=== PATIENT | female | born 1960 | race Caucasian/White ===

== ENCOUNTER 2017-09-25 06:38 | Emergency (ER) | payer OTHER ==
[~2017-09-25] VITALS: Ht 157.5 cm; Wt 72.6 kg
[~2017-09-25 06:38] MED LIST: ALBU8.5H8 INH; CARV3.1246 PO; DOCU-144 PO; FLUT1DIS5 INH; HYDR12.585 PO; IBUP-1969 PO; LISI40TA4 PO; LORA-258 PO; PERD5 PO; SERT50TA12 PO
[2017-09-25 06:54] VITALS: BP_SYST 155
--- NOTE | 2017-09-25 06:54 | NUR ---
Pt c/o H/A with SOB and chest tightness since this AM while getting ready for work. Pt states that she gets these symptoms when her B/P is high. Denies N/V/D.
--- NOTE | 2017-09-25 07:00 | NUR ---
Dr. Jarquin at bedside.
[2017-09-25] MEDS ORDERED: NACL 0.9% 1,000 ML IV ONE (07:04)
[2017-09-25] MEDS ORDERED: ASPIRIN 81 MG TAB.CHEW PO ONE (07:15)
[2017-09-25] MEDS ORDERED: IPRATROPIUM/ALBUTEROL SULFATE 3 ML AMPUL.NEB INH ONE (07:15)
[2017-09-25] MEDS ORDERED: ONDANSETRON HCL 4 MG/2 ML VIAL IVP ONE (07:15)
--- NOTE | 2017-09-25 07:20 | NUR ---
# 20 gauge angiocath placed to LAC. Use of asceptic technique. Opsite placed over site. Blood return noted. Blood for lab drawn from site. Flushed with 10 cc of normal saline. No evidence of infiltration noted. Patient tolerated well.
--- NOTE | 2017-09-25 07:30 | NUR ---
X-ray at bedside.
[2017-09-25 07:33] LABS: BASOPHILS % (AUTO) 0.5 % (0.0-2.0); EOSINOPHILS # (AUTO) 0.5 K/uL (0.0-0.4); EOSINOPHILS % (AUTO) 8.6 % (0.0-4.0); HEMATOCRIT 38.3 % (36-48); HEMOGLOBIN 12.8 g/dL (12.0-16.0); LYMPHOCYTES # (AUTO) 1.3 K/uL (1.0-5.5); LYMPHOCYTES % (AUTO) 24.3 % (20.5-51.5); MEAN CORPUSCULAR HEMOGLOBIN 29 pg (27-31); MEAN CORPUSCULAR HGB CONC 33 % (32-36); MEAN CORPUSCULAR VOLUME 87 fL (79.0-98.0); MONOCYTES # (AUTO) 0.5 K/uL (0.0-1.0); MONOCYTES % (AUTO) 9.7 % (1.7-9.3); NEUTROPHILS # (AUTO) 2.9 K/uL (1.8-7.7); NEUTROPHILS % (AUTO) 56.9 % (40.0-70.0); PLATELET COUNT (AUTO) 306 K/uL (130-430); RED BLOOD CELL COUNT(AUTO) 4.41 MIL/uL (4.2-6.2); RED CELL DISTRIBUTION WIDTH 11.8 % (9.0-15.0); WHITE BLOOD COUNT (AUTO) 5.2 K/uL (4.8-10.8)
--- NOTE | 2017-09-25 07:35 | NUR ---
Dr. Solo at bedside to assess pt.
[2017-09-25 07:42] LABS: ANION GAP 6 (5-15); CHLORIDE 103 mmol/L (98-107); CREATININE 0.81 mg/dL (0.55-1.30); POTASSIUM 3.7 mmol/L (3.5-5.1); SODIUM SERUM 136 mmol/L (136-145); UREA NITROGEN, BLOOD 26 mg/dL (8-21)
[2017-09-25 07:50] LABS: ALANINE AMINOTRANSFERASE 42 U/L (12-78); ALBUMIN 3.8 g/dL (3.4-4.8); ASPARTATE AMINOTRANSFERASE 29 U/L (10-37); CALCIUM 9.1 mg/dL (8.4-11.0); GLUCOSE 113 mg/dL (70-99); INR 0.9 (0.8-1.2); PROTHROMBIN TIME 9.5 SECS (9.5-12.5); TOTAL BILIRUBIN 0.2 mg/dL (0.0-1.0)
[2017-09-25 07:51] LABS: GFR AFRICAN AMERICAN 94 mL/min (>90)
[2017-09-25 08:10] VITALS: BP_SYST 128
--- NOTE | 2017-09-25 08:10 | NUR ---
Patient given written and verbal discharge instructions and verbalizes understanding. ER MD discussed with patient the results and treatment provided. Patient in stable condition. ID arm band removed. IV catheter removed intact and dressing applied, no active bleeding. No Rx given. Patient educated on pain management and to follow up with PMD. Pain Scale 2/10. Opportunity for questions provided and answered. Medication side effect fact sheet provided.
[2017-09-25] MEDS ORDERED: LORazepam 2 MG/ML VIAL (FOR ER USE) IVP ONE (08:15)
[2017-09-25] MEDS ORDERED: KETOROLAC TROMETHAMINE 15 MG VIAL IVP ONE (08:30)
== END 2017-09-25 08:10 | disposition home or self-care (01) ==
LOC: SED 06:38
DX: J45.909 Unspecified asthma, uncomplicated (principal); I10 Essential (primary) hypertension; R51 Headache; Z79.01 Long term (current) use of anticoagulants
CPT/HCPCS: 36415; 71045; 80053; 84484; 85025; 85379; 85610; 85730; 93005; 94640; 96361; 96374; 96375; 99285; J1885; J2405; J7030; J7620

== ENCOUNTER 2019-01-17 05:54 | Emergency (ER) | payer OTHER ==
[~2019-01-17] VITALS: Ht 157.5 cm; Wt 72.6 kg
[2019-01-17 06:06] VITALS: BP_SYST 159
--- NOTE | 2019-01-17 06:10 | NUR ---
Pt c/o worsening of asthma symptoms since Sunday. Pt states that she has had an increase in frequency of coughing, sneezing, with sore throat. Pt states that she tried 15 puffs of her Albuterol Inhaler on Sunday and multiple Albuterol treatments with no relief. Pt states "Everytime I cough, I can't catch my breath." Inspiratory wheezing noted. Pt describes sputum as green-yellow.
--- NOTE | 2019-01-17 06:10 | NUR ---
Pt placed to ER waiting room in stable condition.
[2019-01-17] MEDS ORDERED: AMLO5TAB4 PO (06:12)
--- NOTE | 2019-01-17 06:12 | NUR ---
Medication reconciliation completed with information provided by patient. Any prior medication reconciliation on file was reviewed and corrected.
--- NOTE | 2019-01-17 06:20 | NUR ---
Dr. Palafox at bedside.
[2019-01-17] MEDS ORDERED: methylPREDNISolone SOD SUCC/PF 62.5 MG/ML VIAL IVP ONE (06:30)
[2019-01-17] MEDS ORDERED: IPRATROPIUM/ALBUTEROL SULFATE 3 ML AMPUL.NEB (DUONEB) INH ONE (06:30)
--- NOTE | 2019-01-17 06:37 | NUR ---
RT at bedside
--- NOTE | 2019-01-17 06:40 | NUR ---
Note undone in EDM - 01/17/19 at 0646 by LATIA # 20 gauge angiocath placed to LAC. Use of asceptic technique. Opsite placed over site. Blood return noted. Blood for lab drawn from site. Flushed with 10 cc of normal saline. No evidence of infiltration noted. Patient tolerated well.
[2019-01-17 06:51] LABS: BASOPHILS # (AUTO) 0.1 K/uL (0.0-0.2); BASOPHILS % (AUTO) 0.6 % (0.0-2.0); EOSINOPHILS # (AUTO) 0.3 K/uL (0.0-0.4); EOSINOPHILS % (AUTO) 3.2 % (0.0-4.0); HEMOGLOBIN 12.6 g/dL (12.0-16.0); LYMPHOCYTES # (AUTO) 1.5 K/uL (1.0-5.5); LYMPHOCYTES % (AUTO) 17.8 % (20.5-51.5); MEAN CORPUSCULAR HEMOGLOBIN 29 pg (27-31); MEAN CORPUSCULAR HGB CONC 33 % (32-36); MEAN CORPUSCULAR VOLUME 87 fL (79.0-98.0); MONOCYTES # (AUTO) 0.6 K/uL (0.0-1.0); NEUTROPHILS # (AUTO) 6.1 K/uL (1.8-7.7); NEUTROPHILS % (AUTO) 71.4 % (40.0-70.0); PLATELET COUNT (AUTO) 313 K/uL (130-430); RED BLOOD CELL COUNT(AUTO) 4.34 MIL/uL (4.2-6.2); RED CELL DISTRIBUTION WIDTH 13.1 % (9.0-15.0); WHITE BLOOD COUNT (AUTO) 8.5 K/uL (4.8-10.8)
[2019-01-17] MEDS ORDERED: AMOXICILLIN/CLAVULANATE POTASSIUM 875 MG TABLET PO ONE (07:00)
[2019-01-17] MEDS ORDERED: AZITHROMYCIN 250 MG TABLET PO ONE (07:00)
[2019-01-17 07:12] LABS: CALCIUM 9.4 mg/dL (8.4-11.0); CREATININE 0.69 mg/dL (0.55-1.30); POTASSIUM 3.1 mmol/L (3.5-5.1)
[2019-01-17 07:25] LABS: ALBUMIN 3.8 g/dL (3.4-4.8); TOTAL BILIRUBIN 0.4 mg/dL (0.0-1.0)
--- NOTE | 2019-01-17 07:25 | NUR ---
Pt AAO x 4, pt tolerated medication well. Continuing to monitor.
[2019-01-17 08:01] VITALS: BP_SYST 136
--- NOTE | 2019-01-17 08:01 | NUR ---
Patient given written and verbal discharge instructions and verbalizes understanding. ER MD discussed with patient the results and treatment provided. Patient in stable condition. ID arm band removed. IV catheter removed intact and dressing applied, no active bleeding. Rx of prednisone,levaquin given. Patient educated on pain management and to follow up with PMD. Pain Scale 0. Opportunity for questions provided and answered. Medication side effect fact sheet provided.
== END 2019-01-17 08:01 | disposition home or self-care (01) ==
LOC: SED 05:54
DX: J18.1 Lobar pneumonia, unspecified organism (principal); J45.901 Unspecified asthma with (acute) exacerbation; I10 Essential (primary) hypertension; J44.9 Chronic obstructive pulmonary disease, unspecified; E11.9 Type 2 diabetes mellitus without complications; Z79.899 Other long term (current) drug therapy
CPT/HCPCS: 36415; 36600; 71045; 80053; 82803; 85025; 94640; 96374; 99284; J2930; J7620; Q0144

== ENCOUNTER 2019-01-20 03:09 | Observation (INO) | payer OTHER ==
[~2019-01-20] VITALS: Ht 157.5 cm; Wt 69.4 kg
[2019-01-20 03:09] VITALS: BP_SYST 159
[~2019-01-20 03:09] MED LIST changes: +AMLO5TAB4 PO; -CARV3.1246 PO; -DOCU-144 PO; -IBUP-1969 PO; -LORA-258 PO; -PERD5 PO
[2019-01-20] MEDS ORDERED: ONDANSETRON HCL 4 MG/2 ML VIAL IVP ONE (03:45)
[2019-01-20] MEDS ORDERED: MORPHINE 2 MG/ML INJ. SYRINGE IVP ONE (03:45)
[2019-01-20 04:28] LABS: BASOPHILS # (AUTO) 0.1 K/uL (0.0-0.2); BASOPHILS % (AUTO) 0.9 % (0.0-2.0); EOSINOPHILS # (AUTO) 0.1 K/uL (0.0-0.4); EOSINOPHILS % (AUTO) 0.8 % (0.0-4.0); HEMATOCRIT 38.2 % (36-48); HEMOGLOBIN 12.8 g/dL (12.0-16.0); LYMPHOCYTES # (AUTO) 2.6 K/uL (1.0-5.5); LYMPHOCYTES % (AUTO) 30.5 % (20.5-51.5); MEAN CORPUSCULAR HEMOGLOBIN 29 pg (27-31); MEAN CORPUSCULAR HGB CONC 33 % (32-36); MEAN CORPUSCULAR VOLUME 87 fL (79.0-98.0); MONOCYTES # (AUTO) 0.4 K/uL (0.0-1.0); NEUTROPHILS # (AUTO) 5.3 K/uL (1.8-7.7); NEUTROPHILS % (AUTO) 62.8 % (40.0-70.0); PLATELET COUNT (AUTO) 324 K/uL (130-430); RED CELL DISTRIBUTION WIDTH 12.8 % (9.0-15.0); WHITE BLOOD COUNT (AUTO) 8.5 K/uL (4.8-10.8)
[2019-01-20 04:35] LABS: CALCIUM 9.3 mg/dL (8.4-11.0); CREATININE 0.71 mg/dL (0.55-1.30); POTASSIUM 3.2 mmol/L (3.5-5.1)
[2019-01-20 04:40] LABS: PROTHROMBIN TIME 9.8 SECS (9.5-12.5)
[2019-01-20 04:41] LABS: ALBUMIN 3.6 g/dL (3.4-4.8); TOTAL BILIRUBIN 0.3 mg/dL (0.0-1.0)
[2019-01-20] MEDS ORDERED: IOHEXOL 350 mgI/mL, 150 ML INFUS..BTL IV ONE (05:48)
[2019-01-20] MEDS ORDERED: POTASSIUM CHLORIDE 20 MEQ TAB.PRT.SR PO ONE (06:45)
[2019-01-20 09:00] VITALS: BP_SYST 140
[2019-01-20] MEDS ORDERED: FLUTICASONE 500 mCg/SALMETEROL 50 mCg DISKUS W.DEV INH SCH (09:00)
[2019-01-20] MEDS: ALBUTEROL SULFATE 0.083% 2.5 MG/3 ML VIAL.NEB INH SCH ×5 (09:00→23:00)
[2019-01-20] MEDS: amLODIPine BESYLATE 5 MG TABLET PO SCH ×2 (09:00→09:42)
[2019-01-20] MEDS ORDERED: ALBUTEROL SULFATE 0.083% 2.5 MG/3 ML VIAL.NEB INH PRN (09:00)
[2019-01-20] MEDS ORDERED: IPRATROPIUM BROM 0.5 MG/2.5 ML VIAL.NEB (ATROVENT) INH PRN (09:00)
[2019-01-20] MEDS: LISINOPRIL 20 MG TABLET PO SCH ×2 (09:00→09:43)
[2019-01-20] MEDS: SERTRALINE HCL 50 MG TABLET PO SCH ×2 (09:00→09:43)
[2019-01-20] MEDS: HYDROCHLOROTHIAZIDE 12.5 MG CAPSULE (HCTZ) PO SCH (09:41)
[2019-01-20] MEDS: IPRATROPIUM BROM 0.5 MG/2.5 ML VIAL.NEB (ATROVENT) INH SCH ×4 (11:00→23:00)
[2019-01-20 14:59] VITALS: BP_SYST 140
[2019-01-20 18:19] VITALS: BP_SYST 130
[2019-01-20 20:29] VITALS: BP_SYST 134
[2019-01-20] MEDS ORDERED: ACETAMINOPHEN 325 MG TABLET PO PRN (21:00)
[2019-01-20] MEDS ORDERED: MORPHINE 2 MG/ML INJ. SYRINGE IVP SCH (21:00)
[2019-01-21 01:15] VITALS: BP_SYST 126
[2019-01-21] MEDS: IPRATROPIUM BROM 0.5 MG/2.5 ML VIAL.NEB (ATROVENT) INH SCH ×4 (02:43→15:00)
[2019-01-21] MEDS: ALBUTEROL SULFATE 0.083% 2.5 MG/3 ML VIAL.NEB INH SCH ×4 (02:43→15:00)
[2019-01-21] MEDS ORDERED: LEVOFLOXACIN 500 MG/D5W 100 ML IV SCH (05:15)
[2019-01-21 08:35] VITALS: BP_SYST 140
[2019-01-21] MEDS ORDERED: methylPREDNISolone SOD SUCC/PF 62.5 MG/ML VIAL IVP ONE (09:00)
[2019-01-21] MEDS: SERTRALINE HCL 50 MG TABLET PO SCH (09:16)
[2019-01-21] MEDS: amLODIPine BESYLATE 5 MG TABLET PO SCH (09:17)
[2019-01-21] MEDS: LISINOPRIL 20 MG TABLET PO SCH (09:18)
[2019-01-21] MEDS: HYDROCHLOROTHIAZIDE 12.5 MG CAPSULE (HCTZ) PO SCH (09:19)
[2019-01-21] MEDS ORDERED: AMOXICILLIN/CLAVULANATE POTASSIUM 875 MG TABLET PO ONE (10:00)
[2019-01-21] MEDS ORDERED: AMOX-426 PO (11:08)
[2019-01-21] MEDS ORDERED: PRED20TA PO ×3 (11:09→11:12)
[2019-01-21 11:26] VITALS: BP_SYST 130
[2019-01-21] MEDS ORDERED: methylPREDNISolone SOD SUCC/PF 62.5 MG/ML VIAL IVP SCH (14:00)
[2019-01-21 15:03] VITALS: BP_SYST 134
[2019-01-21 15:29] VITALS: BP_SYST 134
== END 2019-01-21 16:08 | disposition home or self-care (01) ==
LOC: SED 03:09 → STU 07:21 → SMU 01-21 08:40
PROVIDERS: ADMIT Internal Medicine Hospice and Palliative Medicine; ATTEND Internal Medicine Hospice and Palliative Medicine
DX: R07.89 Other chest pain (principal); J45.909 Unspecified asthma, uncomplicated; I10 Essential (primary) hypertension; F41.9 Anxiety disorder, unspecified; F32.9 Major depressive disorder, single episode, unspecified; Z87.891 Personal history of nicotine dependence; Z96.652 Presence of left artificial knee joint
CPT/HCPCS: 36415 ×2; 71045; 71275; 80053; 82550; 83880; 84484 ×2; 85025; 85379; 85610; 85730; 93005; 93306; 94640 ×2; 96374; 96375 ×2; 96376 ×2; 99285; G0378 ×2; J1956; J2270; J2405; J2930; J7613 ×2; Q9967

== ENCOUNTER 2019-10-05 05:07 | Emergency (ER) | payer OTHER ==
[~2019-10-05] VITALS: Ht 157.5 cm; Wt 71.7 kg
[2019-10-05 05:07] VITALS: BP_SYST 152
[~2019-10-05 05:07] MED LIST changes: -ALBU8.5H8 INH; +AMOX-426 PO; +PRED20TA PO
[2019-10-05] MEDS ORDERED: ASPIRIN 81 MG TAB.CHEW PO ONE (05:30)
--- NOTE | 2019-10-05 05:32 | NUR ---
Dr. Kim bedside for pt eval
--- NOTE | 2019-10-05 05:37 | NUR ---
Portable X Ray bedside, well tolerated
[2019-10-05] MEDS ORDERED: MORPHINE 4 MG/ML INJ. SYRINGE IVP ONE (05:45)
--- NOTE | 2019-10-05 05:48 | NUR ---
Pt BIB family to ED C/O chest pain radiating to uuper back and rt neck/back of ear since Sunday. No pain meds taken. No other complaints noted VSS no s/s of acute distress Resting on gurZuvvu rails up
[2019-10-05 05:52] LABS: BASOPHILS % (AUTO) 0.1 % (0.0-2.0); EOSINOPHILS % (AUTO) 0.1 % (0.0-4.0); HEMATOCRIT 37.9 % (36-48); HEMOGLOBIN 12.6 g/dL (12.0-16.0); LYMPHOCYTES % (AUTO) 18.1 % (20.5-51.5); MEAN CORPUSCULAR HEMOGLOBIN 29 pg (27-31); MEAN CORPUSCULAR HGB CONC 33 % (32-36); MEAN CORPUSCULAR VOLUME 86 fL (79.0-98.0); MONOCYTES % (AUTO) 9.2 % (1.7-9.3); NEUTROPHILS % (AUTO) 72.5 % (40.0-70.0); PLATELET COUNT (AUTO) 314 K/uL (130-430); RED BLOOD CELL COUNT(AUTO) 4.39 MIL/uL (4.2-6.2); RED CELL DISTRIBUTION WIDTH 13.8 % (9.0-15.0)
[2019-10-05 05:58] LABS: CALCIUM 9.2 mg/dL (8.4-11.0); CREATININE 0.67 mg/dL (0.55-1.30)
--- NOTE | 2019-10-05 06:03 | NUR ---
Pt stated " IV pain med is effective."
[2019-10-05 06:04] LABS: ALBUMIN 3.9 g/dL (3.4-4.8); TOTAL BILIRUBIN 0.1 mg/dL (0.0-1.0)
--- NOTE | 2019-10-05 06:12 | NUR ---
Dr. Kim bedside for pt info update
--- NOTE | 2019-10-05 06:38 | NUR ---
Updated VS based on Dr. Kim request, VSS no s/s of acute distress Resting on gurbrandy station rails up
[2019-10-05] MEDS ORDERED: POTASSIUM CHLORIDE 20 MEQ TAB.PRT.SR PO ONE (06:45)
--- NOTE | 2019-10-05 07:23 | NUR ---
Patient is resting comfortably in bed, respirations even and unlabored.
--- NOTE | 2019-10-05 08:40 | NUR ---
technical delivery manager at bedside as ordered by Dr. Dos Santos collecting blood specimen. Patient tolerated the procedure well.
[2019-10-05 10:02] VITALS: BP_SYST 132
--- NOTE | 2019-10-05 10:02 | NUR ---
Patient given written and verbal discharge instructions and verbalizes understanding. ER MD discussed with patient the results and treatment provided. Patient in stable condition. ID arm band removed. No Rx given. Patient educated on pain management and to follow up with PMD. Pain Scale 0/10. Opportunity for questions provided and answered. Medication side effect fact sheet provided.
== END 2019-10-05 10:02 | disposition home or self-care (01) ==
LOC: SED 05:07
DX: E87.6 Hypokalemia (principal); R07.89 Other chest pain; J45.909 Unspecified asthma, uncomplicated; I10 Essential (primary) hypertension; Z79.899 Other long term (current) drug therapy
CPT/HCPCS: 36415; 71045; 80053; 82550; 83880; 84484; 85025; 85379; 93005; 96374; 99285; J2270

== ENCOUNTER 2020-07-18 08:36 | Inpatient (IN) | payer OTHER, SELFPAY ==
[~2020-07-18] VITALS: Ht 157.5 cm; Wt 72.6 kg
[~2020-07-18 08:36] MED LIST changes: +LISI40TA13 PO; -LISI40TA4 PO; +SERT-436 PO; -SERT50TA12 PO
[2020-07-18 08:39] VITALS: BP_SYST 140
[2020-07-18 09:13] LABS: BASOPHILS % (AUTO) 0.9 % (0.0-2.0); EOSINOPHILS # (AUTO) 0.4 K/uL (0.0-0.4); EOSINOPHILS % (AUTO) 7.2 % (0.0-4.0); HEMATOCRIT 40.4 % (36-48); HEMOGLOBIN 13.4 g/dL (12.0-16.0); LYMPHOCYTES # (AUTO) 1.5 K/uL (1.0-5.5); LYMPHOCYTES % (AUTO) 26.4 % (20.5-51.5); MEAN CORPUSCULAR HEMOGLOBIN 28 pg (27-31); MEAN CORPUSCULAR HGB CONC 33 % (32-36); MEAN CORPUSCULAR VOLUME 86 fL (79.0-98.0); MONOCYTES # (AUTO) 0.4 K/uL (0.0-1.0); MONOCYTES % (AUTO) 7.9 % (1.7-9.3); NEUTROPHILS # (AUTO) 3.2 K/uL (1.8-7.7); NEUTROPHILS % (AUTO) 57.6 % (40.0-70.0); PLATELET COUNT (AUTO) 331 K/uL (130-430); RED BLOOD CELL COUNT(AUTO) 4.73 MIL/uL (4.2-6.2); RED CELL DISTRIBUTION WIDTH 13.3 % (9.0-15.0); WHITE BLOOD COUNT (AUTO) 5.6 K/uL (4.8-10.8)
[2020-07-18] MEDS ORDERED: NACL 0.9% 1,000 ML IV ONE (09:15)
[2020-07-18] MEDS ORDERED: ONDANSETRON HCL 4 MG/2 ML VIAL IVP ONE (09:15)
[2020-07-18] MEDS ORDERED: MORPHINE 4 MG INJ. 4 MG/ML VIAL IVP ONE ×3 (09:15→11:00)
[2020-07-18 09:34] LABS: ANION GAP 8 (5-15); CALCIUM 9.7 mg/dL (8.4-11.0); CHLORIDE 105 mmol/L (98-107); CREATININE 0.85 mg/dL (0.55-1.30); GLUCOSE 105 mg/dL (70-99); POTASSIUM 3.7 mmol/L (3.5-5.1); SODIUM SERUM 142 mmol/L (136-145); UREA NITROGEN, BLOOD 13 mg/dL (8-21)
[2020-07-18 09:40] LABS: GFR AFRICAN AMERICAN 88 mL/min (>90)
[2020-07-18 09:43] LABS: ALANINE AMINOTRANSFERASE 68 U/L (12-78); ASPARTATE AMINOTRANSFERASE 37 U/L (10-37); LIPASE 172 U/L (73-393); TOTAL BILIRUBIN 0.4 mg/dL (0.0-1.0)
[2020-07-18] MEDS ORDERED: METOCLOPRAMIDE HCL 10 MG/2 ML VIAL IVP ONE (10:00)
[2020-07-18] MEDS ORDERED: MAG-AL HYDROX/SIMETH 30 ML UDC PO ONE (10:00)
[2020-07-18] MEDS ORDERED: LIDOCAINE VISCOUS 2%, 15 ML UDC MM ONE (10:00)
[2020-07-18 11:04] LABS: BILIRUBIN,URINE NEGATIVE (NEGATIVE); BLOOD, URINE NEGATIVE (NEGATIVE); CLARITY/URINE CLEAR (CLEAR); COLOR,URINE YELLOW (YELLOW); GLUCOSE,URINE NEGATIVE (NEGATIVE); KETONES,URINE NEGATIVE (NEGATIVE); LEUKOCYTE ESTERASE ,URINE 1+ (NEGATIVE); NITRITE, URINE NEGATIVE (NEGATIVE); PROTEIN URINE NEGATIVE (NEGATIVE); UROBILINOGEN,URINE 0.2 (0.2-1.0)
[2020-07-18 11:12] LABS: BACTERIA,URINE None Seen /HPF (None Seen); CALCIUM OXALATE CRYSTALS,UR None Seen /HPF (None Seen); CALCIUM PHOSPHATE CRYSTALS,UR None Seen /HPF (None Seen); RBC,URINE NONE SEEN /HPF (0-3); TRICHOMONAS,URINE None Seen /HPF (None Seen); YEAST,URINE None Seen /HPF (None Seen)
[2020-07-18 11:28] LABS: BARBITURATE, URINE NEGATIVE (NEG <=200); BENZODIAZEPINE, URINE NEGATIVE (NEG <=150); CANNABINOID, URINE NEGATIVE (NEG <=50); COCAINE, URINE NEGATIVE (NEG <=150); METHAMPHETAMINES SCREEN,URINE NEGATIVE (NEG <=500); OPIATE, URINE POSITIVE (NEG <=100); PHENCYCLIDINE SCREEN,URINE NEGATIVE (NEG <=25); UR TRICYCLIC ANTIDEPRESSANTS NEGATIVE (NEG <=300); URINE AMPHETAMINE NEGATIVE (NEG <=500); URINE METHADONE NEGATIVE (NEG <=200); URINE OXYCODONE SCREEN NEGATIVE (NEG <=100); URINE PROPOXYPHENE SCREEN NEGATIVE (NEG <=300)
[2020-07-18] MEDS ORDERED: MONT10TA33 PO (11:42)
[2020-07-18] MEDS ORDERED: ALBU8.5H8 INH (11:44)
[2020-07-18] MEDS ORDERED: NACL 0.9% 1,000 ML IV SCH (11:45)
[2020-07-18] MEDS: NACL 0.9% 1,000 ML IV SCH ×2 (12:34→23:19)
[2020-07-18] MEDS ORDERED: SERTRALINE HCL 50 MG TABLET PO ONE (13:00)
[2020-07-18] MEDS ORDERED: MONTELUKAST 10 MG TABLET PO ONE (13:00)
[2020-07-18] MEDS ORDERED: ONDANSETRON 4 MG ODT TAB PO PRN (13:00)
[2020-07-18] MEDS ORDERED: HYDROCHLOROTHIAZIDE 12.5 MG CAPSULE (HCTZ) PO ONE (13:00)
[2020-07-18] MEDS ORDERED: amLODIPine BESYLATE 5 MG TABLET PO ONE (13:00)
[2020-07-18] MEDS ORDERED: lisinopriL 20 MG TABLET PO ONE (13:00)
[2020-07-18] MEDS ORDERED: ALBUTEROL MDI INHALATION 8 GM INH INH PRN (13:00)
[2020-07-18] MEDS ORDERED: PANTOPRAZOLE SODIUM 40 MG/VIAL (PROTONIX) IVP ONE (13:00)
[2020-07-18 13:31] VITALS: BP_SYST 130
[2020-07-18 16:00] VITALS: BP_SYST 133
[2020-07-18] MEDS: ALBUTEROL SULFATE 0.083% 2.5 MG/3 ML VIAL.NEB INH SCH (19:50)
[2020-07-18 20:00] VITALS: BP_SYST 132
[2020-07-18] MEDS: BUDESONIDE 0.5 MG/2 ML AMPUL.NEB INH SCH (20:15)
[2020-07-18] MEDS ORDERED: NALOXONE HCL 0.4 MG/ML AMP (NARCAN) IVP PRN (21:00)
[2020-07-18] MEDS ORDERED: FLUTICASONE 500 mCg/SALMETEROL 50 mCg DISKUS W.DEV INH SCH (21:00)
[2020-07-18] MEDS ORDERED: MORPHINE 2 MG/ML INJ. SYRINGE IVP PRN (21:00)
[2020-07-18] MEDS: MORPHINE 4 MG INJ. 4 MG/ML VIAL IVP PRN (21:50)
[2020-07-19 00:27] VITALS: BP_SYST 119
[2020-07-19 06:08] LABS: BASOPHILS % (AUTO) 0.4 % (0.0-2.0); EOSINOPHILS # (AUTO) 0.4 K/uL (0.0-0.4); EOSINOPHILS % (AUTO) 6.2 % (0.0-4.0); HEMATOCRIT 35.1 % (36-48); HEMOGLOBIN 11.6 g/dL (12.0-16.0); LYMPHOCYTES # (AUTO) 1.5 K/uL (1.0-5.5); LYMPHOCYTES % (AUTO) 24.7 % (20.5-51.5); MEAN CORPUSCULAR HEMOGLOBIN 29 pg (27-31); MEAN CORPUSCULAR HGB CONC 33 % (32-36); MEAN CORPUSCULAR VOLUME 87 fL (79.0-98.0); MONOCYTES # (AUTO) 0.5 K/uL (0.0-1.0); MONOCYTES % (AUTO) 8.8 % (1.7-9.3); NEUTROPHILS # (AUTO) 3.6 K/uL (1.8-7.7); NEUTROPHILS % (AUTO) 59.9 % (40.0-70.0); PLATELET COUNT (AUTO) 256 K/uL (130-430); RED BLOOD CELL COUNT(AUTO) 4.03 MIL/uL (4.2-6.2); WHITE BLOOD COUNT (AUTO) 5.9 K/uL (4.8-10.8)
[2020-07-19 06:28] LABS: CALCIUM 8.9 mg/dL (8.4-11.0); CREATININE 0.77 mg/dL (0.55-1.30); POTASSIUM 4.2 mmol/L (3.5-5.1)
[2020-07-19 08:00] VITALS: BP_SYST 125
[2020-07-19] MEDS: ALBUTEROL SULFATE 0.083% 2.5 MG/3 ML VIAL.NEB INH SCH ×3 (08:28→19:42)
[2020-07-19] MEDS: BUDESONIDE 0.5 MG/2 ML AMPUL.NEB INH SCH ×2 (08:28→19:42)
[2020-07-19] MEDS: PANTOPRAZOLE SODIUM 40 MG/VIAL (PROTONIX) IVP SCH (08:45)
[2020-07-19] MEDS: MORPHINE 4 MG INJ. 4 MG/ML VIAL IVP PRN ×2 (09:00→20:29)
[2020-07-19] MEDS: NACL 0.9% 1,000 ML IV SCH ×2 (09:02→18:50)
[2020-07-19 11:28] VITALS: BP_SYST 119
[2020-07-19] MEDS: lisinopriL 20 MG TABLET PO SCH (14:51)
[2020-07-19] MEDS: MONTELUKAST 10 MG TABLET PO SCH (14:52)
[2020-07-19] MEDS: HYDROCHLOROTHIAZIDE 12.5 MG CAPSULE (HCTZ) PO SCH (14:52)
[2020-07-19] MEDS: amLODIPine BESYLATE 5 MG TABLET PO SCH (14:53)
[2020-07-19] MEDS: SERTRALINE HCL 50 MG TABLET PO SCH (15:00)
[2020-07-19 15:17] VITALS: BP_SYST 121
[2020-07-19 20:00] VITALS: BP_SYST 132
[2020-07-20] MEDS: ALBUTEROL SULFATE 0.083% 2.5 MG/3 ML VIAL.NEB INH SCH ×4 (00:45→19:46)
[2020-07-20 00:52] VITALS: BP_SYST 134
[2020-07-20] MEDS: NACL 0.9% 1,000 ML IV SCH ×2 (05:27→13:45)
[2020-07-20] MEDS: ONDANSETRON HCL 4 MG/2 ML VIAL IVP PRN (05:45)
[2020-07-20] MEDS: BUDESONIDE 0.5 MG/2 ML AMPUL.NEB INH SCH ×3 (07:00→19:46)
[2020-07-20] MEDS: MEPERIDINE 100 MG INJ. 100 MG/ML VIAL ONE ×2 (07:31→11:13)
[2020-07-20] MEDS ORDERED: SIMETHICONE 40 MG/0.6 ML ML ONE (07:31)
[2020-07-20 08:00] VITALS: BP_SYST 142
[2020-07-20] MEDS: MIDAZOLAM HCL 5 MG/5 ML VIAL ONE ×5 (08:17→11:18)
[2020-07-20] MEDS: HYDROCHLOROTHIAZIDE 12.5 MG CAPSULE (HCTZ) PO SCH (08:56)
[2020-07-20] MEDS: lisinopriL 20 MG TABLET PO SCH (08:57)
[2020-07-20] MEDS: amLODIPine BESYLATE 5 MG TABLET PO SCH (08:57)
[2020-07-20] MEDS: MONTELUKAST 10 MG TABLET PO SCH (08:58)
[2020-07-20] MEDS: SERTRALINE HCL 50 MG TABLET PO SCH (08:58)
[2020-07-20] MEDS: PANTOPRAZOLE SODIUM 40 MG/VIAL (PROTONIX) IVP SCH (09:01)
[2020-07-20 12:25] LABS: BASOPHILS % (AUTO) 0.5 % (0.0-2.0); EOSINOPHILS # (AUTO) 0.3 K/uL (0.0-0.4); EOSINOPHILS % (AUTO) 5.4 % (0.0-4.0); HEMATOCRIT 34.3 % (36-48); HEMOGLOBIN 11.4 g/dL (12.0-16.0); LYMPHOCYTES # (AUTO) 1.2 K/uL (1.0-5.5); LYMPHOCYTES % (AUTO) 18.8 % (20.5-51.5); MEAN CORPUSCULAR HEMOGLOBIN 29 pg (27-31); MEAN CORPUSCULAR HGB CONC 33 % (32-36); MEAN CORPUSCULAR VOLUME 86 fL (79.0-98.0); MONOCYTES # (AUTO) 0.5 K/uL (0.0-1.0); MONOCYTES % (AUTO) 8.4 % (1.7-9.3); NEUTROPHILS # (AUTO) 4.1 K/uL (1.8-7.7); NEUTROPHILS % (AUTO) 66.9 % (40.0-70.0); PLATELET COUNT (AUTO) 248 K/uL (130-430); RED BLOOD CELL COUNT(AUTO) 3.99 MIL/uL (4.2-6.2); WHITE BLOOD COUNT (AUTO) 6.2 K/uL (4.8-10.8)
[2020-07-20 12:27] LABS: CALCIUM 8.9 mg/dL (8.4-11.0); CREATININE 0.75 mg/dL (0.55-1.30); POTASSIUM 4.4 mmol/L (3.5-5.1)
[2020-07-20 12:32] LABS: ALBUMIN 3.3 g/dL (3.4-4.8); TOTAL BILIRUBIN 0.3 mg/dL (0.0-1.0)
[2020-07-20 13:00] VITALS: BP_SYST 148
[2020-07-20 15:30] VITALS: BP_SYST 147
[2020-07-20] MEDS: ALBUTEROL SULFATE 0.083% 2.5 MG/3 ML VIAL.NEB INH PRN (16:25)
[2020-07-20 20:00] VITALS: BP_SYST 147
[2020-07-21 00:07] VITALS: BP_SYST 138
[2020-07-21] MEDS: NACL 0.9% 1,000 ML IV SCH ×2 (00:37→10:30)
[2020-07-21] MEDS: MORPHINE 4 MG INJ. 4 MG/ML VIAL IVP PRN ×2 (00:40→15:23)
[2020-07-21] MEDS: ALBUTEROL SULFATE 0.083% 2.5 MG/3 ML VIAL.NEB INH SCH ×3 (01:00→13:00)
[2020-07-21] MEDS: ONDANSETRON HCL 4 MG/2 ML VIAL IVP PRN ×2 (01:20→08:13)
[2020-07-21] MEDS: BUDESONIDE 0.5 MG/2 ML AMPUL.NEB INH SCH (07:00)
[2020-07-21 08:00] VITALS: BP_SYST 152
[2020-07-21] MEDS: PANTOPRAZOLE SODIUM 40 MG/VIAL (PROTONIX) IVP SCH (08:13)
[2020-07-21] MEDS: amLODIPine BESYLATE 5 MG TABLET PO SCH (08:14)
[2020-07-21] MEDS: HYDROCHLOROTHIAZIDE 12.5 MG CAPSULE (HCTZ) PO SCH (08:14)
[2020-07-21] MEDS: MONTELUKAST 10 MG TABLET PO SCH (08:14)
[2020-07-21] MEDS: SERTRALINE HCL 50 MG TABLET PO SCH (08:15)
[2020-07-21] MEDS: lisinopriL 20 MG TABLET PO SCH (08:15)
[2020-07-21] MEDS: ALBUTEROL SULFATE 0.083% 2.5 MG/3 ML VIAL.NEB INH PRN ×2 (10:07→16:06)
[2020-07-21 12:45] VITALS: BP_SYST 140
[2020-07-21 16:40] VITALS: BP_SYST 137
[2020-07-21 17:18] VITALS: BP_SYST 140
[2020-07-21] MEDS ORDERED: OMEP20TA20 PO (18:15)
[2020-07-21] MEDS ORDERED: BENI20 PO (18:15)
== END 2020-07-21 18:30 | disposition home or self-care (01) | DRG 392 ==
LOC: SED 08:36 → SMU 11:42
PROVIDERS: ADMIT Internal Medicine; ATTEND Internal Medicine
PROC: 0DB68ZX Excision of Stomach, Via Natural or Artificial Opening Endoscopic, Diagnostic (ICD-10-PCS; 2020-07-20)
PROC: 0DB98ZX Excision of Duodenum, Via Natural or Artificial Opening Endoscopic, Diagnostic (ICD-10-PCS; principal; 2020-07-20 12:30)
DX: K29.70 Gastritis, unspecified, without bleeding (principal); Z20.822 Contact with and (suspected) exposure to COVID-19; F12.90 Cannabis use, unspecified, uncomplicated; I10 Essential (primary) hypertension; J45.909 Unspecified asthma, uncomplicated; Z90.711 Acquired absence of uterus with remaining cervical stump; F41.9 Anxiety disorder, unspecified; Z96.652 Presence of left artificial knee joint
CPT/HCPCS: 36415; 43239; 71045; 74181; 76376; 80048; 80053; 80307; 81000-TC; 82150-TC; 83690-TC; 84484; 85025; 87081; 88305; 88312; 88313; 93005; 94640; 96361; 96374; 96375; 96376; C9113; J2001; J2175; J2250; J2270; J2405; J2765; J7030; J7613; J7626; Q0162

== ENCOUNTER 2020-11-14 05:23 | Emergency (ER) | payer OTHER, SELFPAY ==
[~2020-11-14] VITALS: Ht 157.5 cm; Wt 72.6 kg
[2020-11-14 05:23] VITALS: BP_SYST 128
[~2020-11-14 05:23] MED LIST changes: +ALBU8.5H8 INH; -AMOX-426 PO; +BENI20 PO; +MONT10TA33 PO; +OMEP20TA20 PO; -PRED20TA PO
--- NOTE | 2020-11-14 06:00 | NUR ---
Patient to ER bed H1 to gown for evaluation. Side rails up. Report given to self.
--- NOTE | 2020-11-14 06:21 | NUR ---
ER Dr. Rodriguez at bedside examining patient. Received patient to ER w/ c/o right mid back pain radiating to right hip and groin ongoing x1 week. Patient feels she may have slept wrong on the couch. Pain progressively worse after having accupuncture on and w/ pain progressively worse. No neuro focal deficits noted. Patient resting quietly. No acute distress noted. Vital signs within normal range. Introduced self to patient, positioned for comfort. continue to monitor level of comfort.
[2020-11-14] MEDS ORDERED: MORPHINE 4 MG INJ. 4 MG/ML VIAL IM ONE (06:45)
[2020-11-14] MEDS ORDERED: HYDR-3917 PO (06:48)
[2020-11-14] MEDS ORDERED: PRED20TA PO (06:48)
[2020-11-14] MEDS ORDERED: IBUP-1969 PO (06:48)
[2020-11-14] MEDS ORDERED: CYCL-10 PO (06:48)
--- NOTE | 2020-11-14 06:50 | NUR ---
Medicated w/ 8mg of morphine IM per MD orders. Will cont to monitor and observe for any adverse reaction. Bed to low position sr up, continue to monitor.
[2020-11-14 08:16] VITALS: BP_SYST 128
--- NOTE | 2020-11-14 08:20 | NUR ---
Patient given written and verbal discharge instructions and verbalizes understanding. ER MD discussed with patient the results and treatment provided. Patient in stable condition. ID arm band removed. Rx of flexeril, norco, ibuprofen, prednisone given. Patient educated on pain management and to follow up with PMD. Pain Scale 3/10. Opportunity for questions provided and answered. Medication side effect fact sheet provided.
--- NOTE | 2020-11-14 08:24 | NUR ---
pt currently waiting for her daughter to pick her up
== END 2020-11-14 08:20 | disposition home or self-care (01) ==
LOC: SED 05:23
DX: M54.16 Radiculopathy, lumbar region (principal); I10 Essential (primary) hypertension; J45.909 Unspecified asthma, uncomplicated; Z79.899 Other long term (current) drug therapy
CPT/HCPCS: 96372; 99283; J2270

== ENCOUNTER 2022-11-19 13:10 | Emergency (ER) | payer OTHER ==
[~2022-11-19] VITALS: Ht 157.5 cm; Wt 71.7 kg
[~2022-11-19 13:10] MED LIST changes: +ACET-2634 PO; +CEPH-548 PO; +CLON-433 PO; +CYCL10TA24 PO; +HYDR-3917 PO; +IBUP-1969 PO; +MONT-40 PO; -MONT10TA33 PO; +PRED20TA PO
[2022-11-19 13:26] VITALS: BP_SYST 141; PULSE 77; RESP 22; TEMP 97.6; O2SAT 96
--- NOTE | 2022-11-19 16:00 | NUR ---
BROUGHT BACK TO BED #6 AND REPORT GIVEN TO JASON
--- NOTE | 2022-11-19 16:01 | NUR ---
RECEIVED PT FROM SHERI CARR. PT BIBS FOR C/O ABCESS ON LOWER PELVIS AREA. VSS. SIDERAILS UP X2.
--- NOTE | 2022-11-19 16:10 | NUR ---
DR VILLAR AT BEDSIDE FOR EVALUATION
--- NOTE | 2022-11-19 16:20 | NUR ---
DR. VILLAR AT BEDSIDE. SITE CLEANED WITH NS, PATTED DRY, LIDOCAINE SQ APPLIED LEFT MONS PUBIS ABCESS, SMALL INCISION MADE TO SITE, AND SITE DRAINED, IODOFORM 1/4 PACKING APPLIED. SITE COVERED WITH GAUZE AND ISLAND DRESSING APPLIED.
[2022-11-19] MEDS ORDERED: LIDOCAINE 1% 10 MG/ML, 20 ML MDV INJ ONE (16:30)
[2022-11-19] MEDS ORDERED: BACITRACIN 1 GM OINT TP ONE (16:30)
[2022-11-19] MEDS ORDERED: DIPHTH,PERTUSS(ACELL),TET VAC 0.5 ML VIAL (Tdap) I.M. ONE (16:30)
[2022-11-19] MEDS ORDERED: CLIN-142 PO (16:33)
[2022-11-19] MEDS ORDERED: IBUP-1969 PO (16:33)
[2022-11-19] MEDS ORDERED: IBUPROFEN 800 MG TABLET PO ONE (16:45)
[2022-11-19] MEDS ORDERED: CLINDAMYCIN HCL 150 MG CAPSULE PO ONE (16:45)
--- NOTE | 2022-11-19 17:05 | NUR ---
MOTRIN 800MG PO AND CLEOCIN GIVEN FOR PAIN.
--- NOTE | 2022-11-19 17:11 | NUR ---
Patient given written and verbal discharge instructions and verbalizes understanding. ER MD discussed with patient the results and treatment provided. Patient in stable condition. ID arm band removed. Rx of MOTRIN, CLEOCIN given. Patient educated on pain management and to follow up with PMD. Pain Scale 2/10. Opportunity for questions provided and answered. Medication side effect fact sheet provided.
[2022-11-19 17:15] VITALS: BP_SYST 122; PULSE 72; RESP 14; TEMP 97.8; O2SAT 99
[2022-11-20] MEDS ORDERED: SULF1TAB48 PO (06:19)
[2022-11-20] MEDS ORDERED: ONDA-8 TL (06:19)
== END 2022-11-19 17:11 | disposition home or self-care (01) ==
LOC: SED 13:10
DX: L02.214 Cutaneous abscess of groin (principal); J45.909 Unspecified asthma, uncomplicated; I10 Essential (primary) hypertension; Z79.899 Other long term (current) drug therapy
CPT/HCPCS: 90715; 99284

== ENCOUNTER 2022-11-20 05:15 | Emergency (ER) | payer OTHER ==
[~2022-11-20] VITALS: Ht 157.5 cm; Wt 72.6 kg
[~2022-11-20 05:15] MED LIST changes: +CLIN-142 PO
[2022-11-20 05:22] VITALS: BP_SYST 153; PULSE 92; RESP 20; TEMP 99.6; O2SAT 99
[2022-11-20] MEDS ORDERED: ACETAMINOPHEN 500 MG TABLET PO ONE (05:45)
[2022-11-20] MEDS ORDERED: SULF1TAB48 PO (06:19)
[2022-11-20] MEDS ORDERED: ONDA-8 TL (06:19)
[2022-11-20 06:46] VITALS: BP_SYST 127; PULSE 85; RESP 20; TEMP 99.3; O2SAT 96
== END 2022-11-20 06:48 | disposition home or self-care (01) ==
LOC: SED 05:15
DX: Z48.00 Encounter for change or removal of nonsurgical wound dressing (principal); K52.9 Noninfective gastroenteritis and colitis, unspecified; I10 Essential (primary) hypertension; J45.909 Unspecified asthma, uncomplicated; Z79.899 Other long term (current) drug therapy
CPT/HCPCS: 99283